=== PATIENT | male | born 1990 | race Two or more races ===

== ENCOUNTER 2019-11-16 20:58 | Emergency (ER) | payer SELFPAY ==
[~2019-11-16] VITALS: Ht 177.8 cm; Wt 77.3 kg
[2019-11-16 21:13] VITALS: BP 143/77
[2019-11-16] MEDS ORDERED: NYST15CR2 TP (21:31)
--- NOTE | 2019-11-16 21:31 | PHYS DOC ---
Past Medical History Past Medical History: No Pertinent History Past Surgical History: Other Additional Past Surgical Histo: cyst removal Smoking Status: Never Smoker Alcohol Use: Occasionally General Adult EDM: Chief Complaint: SKIN RASH/ABSCESS HPI: HPI: Patient is a 28 year old male who presents with now with bilateral groin red, excoriated, itching and burning yeast rash bilaterally for the last 3 days. states that she started using yeast cream that woman used in a certain getting better. For patient's dog he is what every day either with sweat or because of water in these areas. Patient has no past medical history. Rates his discomfort at a 8 out of 10. Review of Systems: Review of Systems: Constitutional: Denies fever or chills. [] Eyes: Denies change in visual acuity. [] HENT: Denies nasal congestion or sore throat. [] Respiratory: Denies cough or shortness of breath. [] Cardiovascular: Denies chest pain or edema. [] GI: Denies abdominal pain, nausea, vomiting, bloody stools or diarrhea. [] : Denies dysuria. [] Musculoskeletal: Denies back pain or joint pain. [] Integument: Bilateral groin yeast rash. Rash. [] Neurologic: Denies headache, focal weakness or sensory changes. [] Endocrine: Denies polyuria or polydipsia. [] Lymphatic: Denies swollen glands. [] Psychiatric: Denies depression or anxiety. [] Heart Score: Risk Factors: Risk Factors: DM, Current or recent (<one month) smoker, HTN, HLP, family history of CAD, obesity. Risk Scores: Score 0 - 3: 2.5% MACE over next 6 weeks - Discharge Home Score 4 - 6: 20.3% MACE over next 6 weeks - Admit for Clinical Observation Score 7 - 10: 72.7% MACE over next 6 weeks - Early Invasive Strategies Allergies: Allergies: Allergies Coded Allergies Type Severity Reaction Last Updated Verified bacitracin Allergy Unknown swelling 11/16/19 Yes neomycin Allergy Unknown swelling 11/16/19 Yes polymyxin B Allergy Unknown swelling 11/16/19 Yes Physical Exam: PE: Constitutional: Well developed, well nourished, no acute distress, non-toxic appearance. [] HENT: Normocephalic, atraumatic, bilateral external ears normal, oropharynx moist, no oral exudates, nose normal. [] Eyes: PERRLA, EOMI, conjunctiva normal, no discharge. [] Neck: Normal range of motion, no tenderness, supple, no stridor. [] Cardiovascular:Heart rate regular rhythm, no murmur [] Lungs & Thorax: Bilateral breath sounds clear to auscultation [] Abdomen: Bowel sounds normal, soft, no tenderness, no masses, no pulsatile masses. [] Skin: Warm, dry, no erythema, bilateral groin yeast rash rash. [] Back: No tenderness, no CVA tenderness. [] Extremities: No tenderness, no cyanosis, no clubbing, ROM intact, no edema. [] Neurologic: Alert and oriented X 3, normal motor function, normal sensory function, no focal deficits noted. [] Psychologic: Affect normal, judgement normal, mood normal. [] Current Patient Data: Vital Signs: Vital Signs Date Time Temp Pulse Resp B/P (MAP) Pulse Ox O2 Delivery O2 Flow Rate FiO2 11/16/19 21:13 98.3 78 20 143/77 (99) 97 Room Air 98.3 EKG: EKG: [] Radiology/Procedures: Radiology/Procedures: [] Course & Med Decision Making: Course & Med Decision Making Pertinent Labs and Imaging studies reviewed. (See chart for details) See HPI. Ambulatory with a steady gait. Alert and oriented x4. Speaking full clear sentences. Patient will be sent home with nystatin cream. [] Dragon Disclaimer: Dragon Disclaimer: This electronic medical record was generated, in whole or in part, using a voice recognition dictation system. Departure Departure Impression: Primary Impression: Yeast dermatitis Disposition: HOME, SELF-CARE Condition: STABLE Patient Instructions: Cutaneous Candidiasis Additional Instructions: Use medication as prescribed. Follow-up with primary care provider. Try to change her close if you can often keep these areas dry. Scripts Nystatin/Triamcin (NYSTATIN-TRIAMCINOLONE CREAM) 15 Gm Cream..g. 1 OTILIA TP BID, #60 GM 1 Refill Prov: BECKY CARTER APRN 11/16/19 Justicifation of Admission Dx: Justifications for Admission: Justification of Admission Dx: N/A BECKY CARTER APRN Nov 16, 2019 21:31
== END 2019-11-16 21:42 | disposition home or self-care (01) ==
LOC: ER 20:58
DX: L30.8 Other specified dermatitis (principal); Z98.890 Other specified postprocedural states
CPT/HCPCS: 99283